=== PATIENT | female | born 1930 | race African-American/Black ===

== ENCOUNTER 2017-12-21 07:55 | Inpatient (IN) | payer MEDICARE, BC ==
[~2017-12-21] VITALS: Ht 152.4 cm; Wt 64.9 kg
[2017-12-21] VITALS (18 sets, daily range): BP systolic 139–166; BP diastolic 65–82
--- NOTE | 2017-12-21 08:10 | NUR ---
AAOX3, CAME TO ER SENT BY PMD FOR LOW HEMOGLOBIN OF 4.0. RR IS EVEN AND UNLABORED WITH NAD NOTED. SKIN IS WARM AND DRY. PLACED ON THE MONITOR. DR PARMAR AT BS FOR EVAL.
--- NOTE | 2017-12-21 08:22 | NUR ---
EKG IN PROGRESS AT BS
[2017-12-21] MEDS ORDERED: IV NS 0.9% 1,000 ML BAG IV ONE (08:30)
[2017-12-21 08:32] LABS: BASOPHILS % (AUTO) 0.1 % (0.0-2.0); EOSINOPHILS % (AUTO) 1.7 % (0.0-6.0); LYMPHOCYTES # (AUTO) 0.9 /CMM (0.8-4.8); LYMPHOCYTES % (AUTO) 7.1 % (20.0-44.0); MEAN CORPUSCULAR HEMOGLOBIN 20 PG (26.0-33.0); MEAN CORPUSCULAR HGB CONC 30 g/dl (31.0-36.0); MEAN CORPUSCULAR VOLUME 69 fL (82-100); MONOCYTES # (AUTO) 0.8 /CMM (0.1-1.30); MONOCYTES % (AUTO) 6.2 % (2.0-12.0); NEUTROPHILS # (AUTO) 10.8 /CMM (1.8-8.9); NEUTROPHILS % (AUTO) 84.9 % (43.0-81.0); PLATELET COUNT (AUTO) 340 /CMM (150-450); RDW COEFFICIENT OF VARIATION 20.8 (11.5-15.0); WHITE BLOOD COUNT (AUTO) 12.7 K/uL (4.3-11.0)
[2017-12-21 08:35] LABS: RED BLOOD CELL COUNT(AUTO) 1.97 MIL/uL (4.0-5.2)
[2017-12-21 08:36] LABS: HEMATOCRIT 14 % (33-45)
[2017-12-21] MEDS ORDERED: VALS320T16 PO (08:41)
[2017-12-21] MEDS ORDERED: ATEN1TAB4 PO (08:41)
[2017-12-21] MEDS ORDERED: AMLO10TA2 PO (08:41)
[2017-12-21] MEDS ORDERED: POLY15DR40 EACHEYE (08:41)
[2017-12-21 08:47] LABS: INR 1.02 (0.87-1.13)
[2017-12-21 08:59] LABS: CALCIUM, SERUM 7.3 mg/dL (8.5-10.1); CARBON DIOXIDE 23 mmol/L (21-32); CHLORIDE 106 mmol/L (98-107); CREATININE 3.9 mg/dL (0.6-1.3); GLUCOSE 121 mg/dL (74-106); POTASSIUM 3.5 mmol/L (3.5-5.1); SODIUM SERUM 144 mmol/L (136-145); UREA NITROGEN, BLOOD 50 mg/dL (7-18)
[2017-12-21 09:07] LABS: TROPONIN I < 0.017 ng/mL (0.00-0.056)
[2017-12-21 09:11] LABS: ALANINE AMINOTRANSFERASE 27 U/L (12-78); ALBUMIN 3.6 g/dL (3.4-5.0); ALKALINE PHOSPHATASE 88 U/L (46-116); ASPARTATE AMINOTRANSFERASE 25 U/L (15-37); BILIRUBIN,DIRECT 0.1 mg/dL (0.0-0.2); BILIRUBIN,TOTAL 0.3 mg/dL (0.2-1.0); TOTAL PROTEIN, SERUM 7.4 g/dL (6.4-8.2)
--- NOTE | 2017-12-21 09:22 | NUR ---
REPORT GIVEN TO ANGELA RYDER FOR NATE 111-2
--- NOTE | 2017-12-21 09:42 | NUR ---
PANEL ON-CALL PAGED
[2017-12-21 09:48] LABS: BAND % (MANUAL) 2 % (0.0-5.0); LYMPHOCYTES % (MANUAL) 9 % (16-48); MONOCYTES % (MANUAL) 6 % (0-11.0); NEUTROPHILS % (MANUAL) 83 (42-76)
--- NOTE | 2017-12-21 10:30 | NUR ---
RN NOTE RECEIVED REPORT FROM [facility] ER. RECEIVED PATIENT 87 YEAR OLD FEMALE FROM HOME PER PATIENT MD HGB RESULTS OF 4.0. PATIENT IS ALERT AND ORIENTED X4 SHE IS ABLE TO MAKE THINGS KNOWN AND VERBALIZE NEEDS. BREATHING EVEN AND UNLABORED WITH NO DISTRESS NOTED. ON CONTINUOUS O2 2L VIA NC SATURATING WELL. ON ASSISTANT FIELD HOCKEY COACH SINUS RHYTHM HR OF 78. PATIENT DENIES ANY PAIN AT THIS TIME. PATIENT SKIN INTACT. LEFT AC 18 GAUGE IV SITE INTACT AND PATENT. AWAITING FOR BLOOD BANK TO CALL TO START TRANSFUSION ON PATIENT. ALL SAFETY MEASURES DONE. BED LOW AND LOCKED POSITION. PLACED CALL LIGHT WITHIN REACH. WILL CONTINUE TO MONITOR CLOSELY
--- NOTE | 2017-12-21 11:05 | NUR ---
RN NOTE INITIATED BLOOD TRANSFUSION. VS ARE STABLE, PATIENT REMAINS CALM AND COLLECTIVE. WILL MONITOR FOR REACTIONS AND CONTINUE TO MONITOR VITAL SIGNS.
--- NOTE | 2017-12-21 11:25 | NUR ---
RN NOTE PATIENT REMAINS CALM AND COLLECTIVE. NO REACTION TO BLOOD TRANSFUSION. VITAL SIGNS ARE STABLE. WILL CONTINUE TO MONITOR
[2017-12-21] MEDS ORDERED: FUROSEMIDE 20 MG/2 ML VIAL IV PRN (12:00)
[2017-12-21] MEDS ORDERED: Z GUARD REMEDY 2 OZ OINT TP PRN (12:00)
[2017-12-21] MEDS ORDERED: ACETAMINOPHEN 325 MG TABLET PO PRN (12:00)
[2017-12-21] MEDS ORDERED: ONDANSETRON HCL/PF 4 MG/2 ML VIAL IVP PRN (12:00)
[2017-12-21] MEDS ORDERED: ZOLPIDEM TARTRATE 5 MG TABLET PO PRN (12:00)
[2017-12-21] MEDS ORDERED: POLYVINYL ALCOHOL 15 ML BOTTLE EACHEYE PRN (12:00)
[2017-12-21] MEDS: VALSARTAN 80 MG TABLET PO SCH (12:22)
[2017-12-21] MEDS: ATENOLOL 50 MG TABLET PO SCH (12:22)
[2017-12-21] MEDS: AMLODIPINE BESYLATE 10 MG TABLET PO SCH (12:22)
--- NOTE | 2017-12-21 13:30 | NUR ---
RN NOTE 1 UNIT PRBCS INFUSED. PATIENT REMAINS IN STABLE CONDITION WITH NO DISTRESS OR REACTIONS NOTED. WILL INFUSE A SECOND UNIT ORDERED.
--- NOTE | 2017-12-21 14:05 | NUR ---
RN NOTE SECOND TRANSFUSION STARTED PATIENT IN STABLE CONDITION WITH NO DISTRESS NOTED. WILL CONTINUE TO MONITOR THROUGHOUT TRANSFUSION.
[2017-12-21] MEDS: IV NS 0.9% 1,000 ML IV PRN (15:36)
--- NOTE | 2017-12-21 17:10 | NUR ---
RN NOTE SECOND UNIT OF PRBC TRANSFUSED. NO DISTRESS OR REACTION NOTED. PATIENT REMAINS STABLE. VITAL SIGNS ARE STABLE.
--- NOTE | 2017-12-21 17:25 | NUR ---
RN NOTE THIRD TRANSFUSION STARTED, PATIENT IN STABLE CONDITION WITH NO DISTRESS NOTED. VITAL SIGNS ARE STABLE. WILL CONTINUE TO MONITOR THROUGHOUT TRANSFUSION.
--- NOTE | 2017-12-21 18:25 | NUR ---
RN NOTE PATIENT REMAINS STABLE. NO REACTIONS OR DISTRESS NOTED DURING THE TRANSFUSION. WILL CONTINUE TO MONITOR.
--- NOTE | 2017-12-21 19:02 | NUR ---
RN NOTE PATIENT REMAINED STABLE THROUGHOUT SHIFT. NO ACUTE CHANGES OR DISTRESS NOTED. WILL ENDORSE TO NEXT SHIFT TO CONTINUE BLOOD TRANSFUSION, CALL LABS TO DRAW BLOOD FOR RESULTS, AND GIVE LASIX POST PRBC ORDERED.
--- NOTE | 2017-12-21 19:30 | NUR ---
TRANSFORMER REPAIRER OPENING NOTES RECEIVED PT RESTING IN BED, A & O X 4, ON TELE MONITOR WITH SR 76. NO ACUTE DISTRESS, NO C/O PAIN NOTED. RECEIVED WITH ON GOING BLOOD TRANSFUSION # 3 BLOOD UNIT, TOLERATING WELL @ THIS TIME. NO ADVERSE SIDE EFFECTS NOTED. PT ADMITTED WITH DX OF ANEMIA. ABLE TO TAKE PO INTAKE. IV ACCESS TO LAC, INTACT PATENT. BED IN LOW LOCKED POSITION. CALL LIGHT WITHIN REACH. SAFETY MEASURES IN PLACE. WILL OBSERVE CLOSELY.
--- NOTE | 2017-12-21 20:44 | NUR ---
BLOOD TRANSFUSION ENDED 3RD UNIT OF BLOOD TRANSFUSION WAS DONE, V/S CHECKED 159/76,74,20,97.6, 96% @ 2 LPM VIA NC. NO ADVERSE EFFECTS OF BT NOTED. IN SEMI NAVARRO POSITION. NO SOB NOTED. WILL CONTINUE TO MONITOR CLOSELY.
--- NOTE | 2017-12-21 21:14 | NUR ---
PRN LASIX GIVEN PT'S BLOOD TRANSFUSION HAS FINISHED, PRN LASIX IS GIVEN ORDERED. VSS @ THIS TIME. WILL CONTINUE TO MONITOR CLOSELY.
[2017-12-21 22:55] LABS: EOSINOPHILS % (AUTO) 0.9 % (0.0-6.0); HEMATOCRIT 28 % (33-45); LYMPHOCYTES % (AUTO) 6.7 % (20.0-44.0); MEAN CORPUSCULAR HEMOGLOBIN 25 PG (26.0-33.0); MEAN CORPUSCULAR HGB CONC 33 g/dl (31.0-36.0); MEAN CORPUSCULAR VOLUME 78 fL (82-100); MONOCYTES # (AUTO) 1.1 /CMM (0.1-1.30); MONOCYTES % (AUTO) 7.3 % (2.0-12.0); NEUTROPHILS # (AUTO) 12.6 /CMM (1.8-8.9); NEUTROPHILS % (AUTO) 85.1 % (43.0-81.0); PLATELET COUNT (AUTO) 302 /CMM (150-450); RDW COEFFICIENT OF VARIATION 23.7 (11.5-15.0); RED BLOOD CELL COUNT(AUTO) 3.53 MIL/uL (4.0-5.2); WHITE BLOOD COUNT (AUTO) 14.9 K/uL (4.3-11.0)
--- NOTE | 2017-12-21 23:05 | NUR ---
VS CHECKED BP 155/75,74,16,96% @ 2LPM VIA NC. IN SEMI NAVARRO POSITION, PER PT, SHE IS COMFORTABLE @ THIS TIME.
[2017-12-21 23:20] LABS: TROPONIN I < 0.017 ng/mL (0.00-0.056)
[2017-12-21 23:36] LABS: IRON, SERUM 345 ug/dl (50-175); TOTAL IRON BINDING CAPACITY 369 ug/dl (250-450)
--- NOTE | 2017-12-21 23:44 | NUR ---
NOTIFIED PT'S LAB RESULTS CAME BACK AFTER THE BLOOD TRANSFUSION, HGB/HCT 9.0/28, WBC'S 14.9, WHICH TRENDED UP SINCE THE LAST WBC RESULTS. DR MANDUJANO WAS NOTIFIED WITH NO NEW ORDER @ THIS TIME. NO ACUTE CHANGES NOTED. CONTINUING TO MONITOR CLOSELY. PT IS ASLEEP COMFORTABLY @ THIS TIME. NO SOB NOTED. SR 74.
[2017-12-22] VITALS: BP_SYST 156; BP_SYST 167; BP_DIAS 74; BP_DIAS 76
[2017-12-22 04:00] VITALS: BP 157/75
[2017-12-22] MEDS: IV NS 0.9% 1,000 ML IV PRN (04:59)
[2017-12-22 06:18] LABS: BASOPHILS % (AUTO) 0.1 % (0.0-2.0); EOSINOPHILS % (AUTO) 1.3 % (0.0-6.0); HEMATOCRIT 26 % (33-45); HEMOGLOBIN 8.5 g/dL (11.5-14.8); LYMPHOCYTES # (AUTO) 0.8 /CMM (0.8-4.8); LYMPHOCYTES % (AUTO) 7.1 % (20.0-44.0); MEAN CORPUSCULAR HEMOGLOBIN 25 PG (26.0-33.0); MEAN CORPUSCULAR HGB CONC 32 g/dl (31.0-36.0); MEAN CORPUSCULAR VOLUME 78 fL (82-100); MONOCYTES # (AUTO) 0.8 /CMM (0.1-1.30); NEUTROPHILS # (AUTO) 9.8 /CMM (1.8-8.9); NEUTROPHILS % (AUTO) 84.5 % (43.0-81.0); PLATELET COUNT (AUTO) 281 /CMM (150-450); RDW COEFFICIENT OF VARIATION 23.1 (11.5-15.0); RED BLOOD CELL COUNT(AUTO) 3.39 MIL/uL (4.0-5.2); WHITE BLOOD COUNT (AUTO) 11.6 K/uL (4.3-11.0)
--- NOTE | 2017-12-22 06:26 | NUR ---
TELEMETRY TECH CLOSING NOTES PT SLEPT INTERMITTENTLY @ NIGHT, A & O X 3, NO C/O PAIN, NO ACUTE CHANGES NOTED. ON BED REST, INCONTINENT @ TIMES, USES DIAPER. ON O2 @ 2LPM VIA NC SATTING 95-98 %. ON TELE MONITORING WITH SR 76. IV ACCESS TO LAC, INTACT PATENT, RUNNING WITH IVF @ 75 ML/HR. BED IN LOW LOCKED POSITION. IN SEMI NAVARRO POSITION. CALL LIGHT WITHIN REACH. SAFETY MEASURES IN PLACE. WILL ENDORSE TO AM RN FOR CONTINUITY OF CARE.
[2017-12-22 06:52] LABS: CHOLESTEROL 179 mg/dL (<200); HDL CHOLESTEROL 42 mg/dL (40-60); LDL 122 mg/dL (0-99); THYROID STIMULATING HORMONE 0.872 uIU/mL (0.358-3.74); TRIGLYCERIDES 144 mg/dL (30-150)
[2017-12-22 06:55] LABS: ALANINE AMINOTRANSFERASE 24 U/L (12-78); ALBUMIN 3.3 g/dL (3.4-5.0); ALKALINE PHOSPHATASE 82 U/L (46-116); ASPARTATE AMINOTRANSFERASE 23 U/L (15-37); BILIRUBIN,TOTAL 0.7 mg/dL (0.2-1.0); CALCIUM, SERUM 7.1 mg/dL (8.5-10.1); CARBON DIOXIDE 20 mmol/L (21-32); CHLORIDE 109 mmol/L (98-107); CREATININE 3.2 mg/dL (0.6-1.3); GLUCOSE 88 mg/dL (74-106); MAGNESIUM 2.1 mg/dL (1.8-2.4); PHOSPHORUS 3.6 mg/dL (2.5-4.9); POTASSIUM 3.5 mmol/L (3.5-5.1); SODIUM SERUM 145 mmol/L (136-145); TOTAL PROTEIN, SERUM 6.9 g/dL (6.4-8.2); UREA NITROGEN, BLOOD 43 mg/dL (7-18)
--- NOTE | 2017-12-22 07:25 | NUR ---
COMMERCIAL LINES ACCOUNT EXECUTIVE/OPENING NOTES RECEIVED PT. IN BED A&OX4. TELE READING SINUS RHYTHM 74 BPM. PT.N IS BREATHING UNLABORED, AND EVENLY ON OXYGEN AT 2L/MIN VIA NASAL CANNULA. IV FLUIDS RUNNING AT 75 ML/HR. NO S/S OF ACUTE DISTRESS. BED IS IN LOWEST, AND LOCKED POSITION. 2 SIDE RAILS UP. INSTRUCTED PT. TO USE CALL LIGHT FOR ASSISTANCE. ALL NEEDS MET, WILL CONTINUE TO ASSESS AND MONITOR.
[2017-12-22 08:00] VITALS: BP 166/75
[2017-12-22] MEDS: AMLODIPINE BESYLATE 10 MG TABLET PO SCH (08:58)
[2017-12-22] MEDS: ATENOLOL 50 MG TABLET PO SCH (08:58)
[2017-12-22] MEDS: VALSARTAN 80 MG TABLET PO SCH (08:59)
[2017-12-22 12:00] VITALS: BP 158/73
[2017-12-22] MEDS ORDERED: hydrALAZINE HCL 50 MG TABLET PO ONE (13:00)
[2017-12-22] MEDS ORDERED: FUROSEMIDE 20 MG/2 ML VIAL IV STA (14:28)
[2017-12-22] MEDS ORDERED: POTASSIUM CHLORIDE 20 MEQ TAB.PRT.SR PO ONE (14:30)
[2017-12-22] MEDS ORDERED: POTASSIUM CHLORIDE 20 MEQ POWDER PACKET PO ONE (15:00)
[2017-12-22 16:00] VITALS: BP 163/66
[2017-12-22] MEDS ORDERED: ATEN100T PO (16:10)
[2017-12-22 17:48] LABS: BILIRUBIN,URINE NEGATIVE (NEGATIVE); BLOOD, URINE NEGATIVE Ery/uL (NEGATIVE); COLOR,URINE YELLOW (YELLOW); KETONES,URINE NEGATIVE (NEGATIVE); LEUKOCYTE ESTERASE ,URINE NEGATIVE (NEGATIVE); NITRITE, URINE NEGATIVE (NEGATIVE); PH,URINE 7.5 (5.0-8.0); PROTEIN,URINE NEGATIVE (NEGATIVE); UGLUCOSE NEGATIVE (NEGATIVE)
[2017-12-22 17:54] LABS: APPEARANCE,URINE SLIGHTLY CLOUDY (CLEAR)
[2017-12-22 18:03] LABS: CREATININE, URINE 19.6 MG/DL (30.0-125.0); URINE TOTAL PROTEIN 16.2 mg/dL (0-11.9)
--- NOTE | 2017-12-22 18:30 | NUR ---
RN NOTES REMOVED TOTAL 750 CC OF CLEAR, AND YELLOW URINE FROM STRAIGHT CATHETERIZATION.
[2017-12-22 18:53] LABS: EOSINOPHIL,URINE Few
--- NOTE | 2017-12-22 19:29 | NUR ---
PAN RECLAIM PROCESSOR/CLOSING NOTES PT. IS IN BED AWAKE, A&OX4. TELE READING SINUS RHYTHM 69 BPM. PT. IS BREATHING UNLABORED, AND EVENLY ON OXYGEN AT 2L/MIN VIA NASAL CANNULA. IV FLUIDS DISCONTINUED PER ORDERS. NO S/S OF ACUTE DISTRESS. BED IS IN LOWEST, AND LOCKED POSITION. 2 SIDE RAILS UP. INSTRUCTED PT. TO USE CALL LIGHT FOR ASSISTANCE. ALL NEEDS MET, WILL ENDORSE REPORT TO NURSE.
--- NOTE | 2017-12-22 19:43 | NUR ---
INSTRUCTOR KNITTING NOTES RECEIVED REPORT FROM PRASAD MILLER. PATIENT A/A/O X4, ABLE TO MAKE NEEDS KNOWN COMPLETELY. BREATHING EVEN & UNLABORED, TOLERATING O2 @ 2LPM VIA NC. ON TELE W/ SINUS RHYTHM, HR 64. DENIES ANY RESPIRATORY OR CARDIAC DISTRESS. LEFT AC IV #18 INTACT & PATENT W/ DRESSING CDI, SALINE LOCKED. SKIN WARM, DRY & INTACT. DENIES ANY PAIN OR DISCOMFORT @ THIS TIME. DENIES ANY NAUSEA, DIZZINESS OR HEADACHE. PATIENT RESTING COMFORTABLY IN BED W/ SAFETY MEASURES MAINTAINED. INSTRUCTED TO USE CALL LIGHT FOR ASSISTANCE. WILL CONTINUE TO MONITOR.
[2017-12-22 20:00] VITALS: BP 160/71
[2017-12-23] VITALS: BP 123/69
[2017-12-23 04:00] VITALS: BP 156/73
--- NOTE | 2017-12-23 07:19 | NUR ---
ROCKET ENGINE COMPONENT MECHANIC NOTES: RECEIVED PT ON BED AWAKE, ALERT AND ORIENTED X3. ABLE TO MAKE NEEDS KNOWN. NO ACUTE DISTRESS NOTED. DENIES PAIN AT THIS TIME. BREATHING EVEN AND UNLABORED WITH NORMAL RESPIRATIONS. ON TELE MONITOR, SINUS RHYTHM HR 66BPM. KEPT CLEAN, DRY AND COMFORTABLE. SIDE RAILS UP X2. BED LOCKED AND IN LOWEST POSITION. CALL LIGHT WITHIN REACH. WILL CONTINUE TO MONITOR PT.
[2017-12-23 08:00] VITALS: BP 163/74
[2017-12-23] MEDS: AMLODIPINE BESYLATE 10 MG TABLET PO SCH (08:30)
[2017-12-23] MEDS: ATENOLOL 50 MG TABLET PO SCH (08:30)
[2017-12-23 09:03] LABS: EOSINOPHILS % (AUTO) 0.8 % (0.0-6.0); HEMATOCRIT 30 % (33-45); HEMOGLOBIN 9.6 g/dL (11.5-14.8); LYMPHOCYTES # (AUTO) 0.7 /CMM (0.8-4.8); LYMPHOCYTES % (AUTO) 4.8 % (20.0-44.0); MEAN CORPUSCULAR HEMOGLOBIN 25 PG (26.0-33.0); MEAN CORPUSCULAR HGB CONC 32 g/dl (31.0-36.0); MEAN CORPUSCULAR VOLUME 78 fL (82-100); MONOCYTES # (AUTO) 0.7 /CMM (0.1-1.30); MONOCYTES % (AUTO) 5.1 % (2.0-12.0); NEUTROPHILS # (AUTO) 12.1 /CMM (1.8-8.9); NEUTROPHILS % (AUTO) 89.3 % (43.0-81.0); PLATELET COUNT (AUTO) 306 /CMM (150-450); RDW COEFFICIENT OF VARIATION 25.2 (11.5-15.0); RED BLOOD CELL COUNT(AUTO) 3.89 MIL/uL (4.0-5.2); WHITE BLOOD COUNT (AUTO) 13.6 K/uL (4.3-11.0)
[2017-12-23 09:22] LABS: ALANINE AMINOTRANSFERASE 23 U/L (12-78); ALBUMIN 3.6 g/dL (3.4-5.0); ALKALINE PHOSPHATASE 93 U/L (46-116); ASPARTATE AMINOTRANSFERASE 17 U/L (15-37); BILIRUBIN,TOTAL 0.7 mg/dL (0.2-1.0); CALCIUM, SERUM 7.9 mg/dL (8.5-10.1); CARBON DIOXIDE 22 mmol/L (21-32); CHLORIDE 106 mmol/L (98-107); CREATININE 3.2 mg/dL (0.6-1.3); GLUCOSE 151 mg/dL (74-106); MAGNESIUM 1.9 mg/dL (1.8-2.4); PHOSPHORUS 3.4 mg/dL (2.5-4.9); POTASSIUM 3.9 mmol/L (3.5-5.1); SODIUM SERUM 143 mmol/L (136-145); TOTAL PROTEIN, SERUM 7.6 g/dL (6.4-8.2); UREA NITROGEN, BLOOD 39 mg/dL (7-18)
[2017-12-23 09:24] LABS: CREATINE KINASE, TOTAL 250 U/L (26-192)
[2017-12-23 10:01] LABS: CREATINE KINASE MB 1.2 ng/mL (0-3.6)
[2017-12-23 12:00] VITALS: BP 153/66
--- NOTE | 2017-12-23 13:39 | NUR ---
MANAGER WEB APPLICATION NOTES: PATIENT WAS DISCHARGED HOME, PICKED UP BY DAUGHTER. PT IS STABLE. DENIES PAIN. IV WAS REMOVED. BELONGINGS LIST DONE. SKIN IS INTACT. HEALTH EDUCATION AND DISCHARGE INSTRUCTIONS GIVEN.
[2017-12-25 11:11] LABS: *SPE A/G RATIO 1.2 (0.7-1.7); *SPE ALBUMIN 3.7 g/dL (2.9-4.4); *SPE ALPHA-1-GLOBULIN 0.3 g/dL (0.0-0.4); *SPE BETA GLOBULIN 1.1 g/dL (0.7-1.3); *SPE M-SPIKE Not Observed g/dL (Not Observed); *SPEGAMMA GLOBULIN 0.7 g/dL (0.4-1.8)
[2017-12-25 12:17] LABS: PTH, INTACT 180 pg/mL (15-65)
== END 2017-12-23 13:30 | disposition home or self-care (01) | DRG 808 ==
LOC: ER 07:56 → TELE-TD 09:21 → TELE1 13:05
PROVIDERS: ADMIT Nurse Practitioner Acute Care; ATTEND Nurse Practitioner Acute Care
PROC: 30233N1 Transfusion of Nonautologous Red Blood Cells into Peripheral Vein, Percutaneous Approach (ICD-10-PCS; principal; 2017-12-21)
DX: D59.2 Drug-induced nonautoimmune hemolytic anemia (principal); I50.33 Acute on chronic diastolic (congestive) heart failure; I13.0 Hypertensive heart and chronic kidney disease with heart failure and stage 1 through stage 4 chronic kidney disease, or unspecified chronic kidney disease; N17.9 Acute kidney failure, unspecified; N18.9 Chronic kidney disease, unspecified; D72.829 Elevated white blood cell count, unspecified; H40.9 Unspecified glaucoma; D50.9 Iron deficiency anemia, unspecified; T50.2X5A Adverse effect of carbonic-anhydrase inhibitors, benzothiadiazides and other diuretics, initial encounter; Y92.009 Unspecified place in unspecified non-institutional (private) residence as the place of occurrence of the external cause; R33.9 Retention of urine, unspecified
CPT/HCPCS: 36415; 71045-TC; 80048-TC; 80053-TC; 80061-TC; 80076-TC; 81000-TC; 82550-TC; 82553-TC; 82570-TC; 83010; 83540-TC; 83615-TC; 83735-TC; 83970; 84100-TC; 84155; 84155-TC; 84165; 84300-TC; 84443-TC; 84484-TC; 85025-TC; 85045-TC; 85652-TC; 85730-TC; 86850-TC; 86921-TC; 87081-TC; 93307-TC; A4606; J1940; J7030; J7050; P9016-BL; Z7610